=== PATIENT | male | born 2000 | race Caucasian/White ===

== ENCOUNTER 2023-02-10 15:13 | Inpatient (IN) | payer OTHER ==
[~2023-02-10] VITALS: Ht 175.3 cm; Wt 130.0 kg
[2023-02-10 17:34] LABS: BASOPHILS % (AUTO) 0.7 % (0.0-2.0); EOSINOPHILS % (AUTO) 1.9 % (1.0-6.0); HEMATOCRIT 47.6 % (41-53); HEMOGLOBIN 15.7 g/dL (13.5-17.5); LYMPHOCYTES # (AUTO) 2.8 K/uL (1.0-4.8); LYMPHOCYTES % (AUTO) 25.4 % (22.0-44.0); MEAN CORPUSCULAR HEMOGLOBIN 27.5 pg (26.0-34.0); MEAN CORPUSCULAR HGB CONC 32.9 G/dL (31.0-37.0); MEAN CORPUSCULAR VOLUME 83 fL (80-100); MONOCYTES # (AUTO) 0.6 K/uL (0.1-1.0); MONOCYTES % (AUTO) 5.8 % (2.0-9.0); NEUTROPHILS # (AUTO) 7.2 K/uL (1.8-7.7); NEUTROPHILS % (AUTO) 66.2 % (40.0-70.0); PLATELET COUNT (AUTO) 322 K/uL (150-450); RED BLOOD CELL COUNT(AUTO) 5.71 MIL/uL (4.50-5.90); RED CELL DISTRIBUTION WIDTH 14.1 % (11.5-14.5)
[2023-02-10 17:45] LABS: ANION GAP 12 mmol/L (8-16); CALCIUM, TOTAL 9.2 mg/dL (8.8-10.5); CARBON DIOXIDE 25 mmol/L (22-29); CHLORIDE 101 mmol/L (98-107); CREATININE 0.85 mg/dL (0.60-1.30); GLOMERULAR FILTR. RATE CALC > 60 mL/min (>60); GLUCOSE,RANDOM 105 mg/dL (70-110); POTASSIUM 3.8 mmol/L (3.5-5.1); SODIUM SERUM 138 mmol/L (136-145)
[2023-02-10 17:53] LABS: AMPHET/METH SCREEN,URINE NEGATIVE (NEGATIVE); BARBITURATE SCREEN, URINE NEGATIVE (NEGATIVE); BENZODIAZEPINES SCREEN,URINE POSITIVE (NEGATIVE); CANNABINOID SCREEN,URINE POSITIVE (NEGATIVE); COCAINE SCREEN,URINE POSITIVE (NEGATIVE); METHADONE SCREEN, URINE NEGATIVE (NEGATIVE); OPIATE SCREEN,URINE NEGATIVE (NEGATIVE); PHENCYCLIDINE SCREEN,URINE NEGATIVE (NEGATIVE)
[2023-02-10 17:54] LABS: ALANINE AMINOTRANSFERASE 31 U/L (12-78); ALKALINE PHOSPHATASE 87 U/L (46-116); ASPARTATE AMINOTRANSFERASE 20 U/L (15-37); BILIRUBIN,TOTAL 0.5 mg/dL (0.1-1.0); TOTAL PROTEIN, SERUM 8.3 g/dL (6.4-8.2)
[2023-02-10 17:55] LABS: ACETAMINOPHEN < 2 mcg/mL (10-30)
[2023-02-10 18:02] LABS: SALICYLATE 0.5 mg/dL (2.8-20.0)
[2023-02-10] MEDS ORDERED: LORazepam 2 MG/ML VIAL IM ONE (20:00)
[2023-02-10] MEDS ORDERED: BISACODYL 10 MG RECTAL RECTAL SUPPOSITORY PR PRN (20:30)
[2023-02-10] MEDS ORDERED: IPRATROPIUM BROMIDE 0.5 MG/2.5 ML NEB SOLUTION NEB PRN (20:30)
[2023-02-10] MEDS ORDERED: LORazepam 2 MG TABLET PO PRN (20:30)
[2023-02-10] MEDS ORDERED: ALBUTEROL SULFATE 2.5 MG/0.5 ML NEB SOLUTION NEB PRN (20:30)
[2023-02-10] MEDS ORDERED: MAGNESIUM HYDROXIDE SUSPENSION 30 ML UDCUP PO PRN (20:30)
[2023-02-10] MEDS ORDERED: ONDANSETRON HCL 4 MG/2 ML VIAL IVP PRN (20:30)
[2023-02-10 21:21] LABS: COVID AG,FIA SOURCE NASAL SWAB
[2023-02-10] MEDS: ZOLPIDEM TARTRATE 5 MG TABLET PO PRN (22:12)
[2023-02-10] MEDS: HEPARIN SODIUM,PORCINE 5,000 UNITS/ML VIAL SQ SCH (22:12)
[2023-02-10 22:25] VITALS: BP 121/70
[2023-02-11 04:59] VITALS: BP 113/66
[2023-02-11] MEDS ORDERED: LORazepam 2 MG TABLET PO PRN (07:00)
[2023-02-11 07:30] VITALS: BP 97/46
[2023-02-11] MEDS: HEPARIN SODIUM,PORCINE 5,000 UNITS/ML VIAL SQ SCH ×2 (08:53→16:17)
[2023-02-11] MEDS: PANTOPRAZOLE SODIUM 40 MG DR TABLET PO SCH (08:53)
[2023-02-11 09:00] VITALS: BP 116/53
[2023-02-11] MEDS ORDERED: LORazepam 2 MG TABLET PO SCH (09:00)
[2023-02-11] MEDS: ACETAMINOPHEN 325 MG TABLET PO PRN (14:28)
[2023-02-11] MEDS: LORazepam 2 MG/ML VIAL IVP PRN ×2 (15:18→19:43)
[2023-02-11] MEDS: ZOLPIDEM TARTRATE 5 MG TABLET PO PRN (19:43)
[2023-02-11 19:53] VITALS: BP 107/86
[2023-02-12] MEDS: LORazepam 2 MG/ML VIAL IVP PRN ×2 (02:22→08:47)
[2023-02-12] MEDS: ACETAMINOPHEN 325 MG TABLET PO PRN (02:53)
[2023-02-12 02:55] VITALS: BP 133/76
[2023-02-12] MEDS ORDERED: DiphenhydrAMINE HCL 50 MG/ML VIAL IVP ONE (03:30)
[2023-02-12 07:33] VITALS: BP 105/64
[2023-02-12] MEDS: PANTOPRAZOLE SODIUM 40 MG DR TABLET PO SCH (08:48)
[2023-02-12] MEDS: HEPARIN SODIUM,PORCINE 5,000 UNITS/ML VIAL SQ SCH ×3 (08:48→16:00)
[2023-02-12] MEDS ORDERED: LORazepam 1 MG TABLET PO ONE (09:30)
[2023-02-12] MEDS: ChlorproMAZINE HCL 50 MG TABLET PO PRN ×3 (09:47→18:45)
[2023-02-12 14:29] VITALS: BP 148/95
[2023-02-12 20:07] VITALS: BP 145/92
[2023-02-13] MEDS: HEPARIN SODIUM,PORCINE 5,000 UNITS/ML VIAL SQ SCH ×3 (00:14→16:24)
[2023-02-13] MEDS: ZOLPIDEM TARTRATE 10 MG TABLET PO PRN (00:15)
[2023-02-13 05:16] VITALS: BP 119/70
[2023-02-13] MEDS ORDERED: LORazepam 1 MG TABLET PO PRN (07:00)
[2023-02-13 08:18] VITALS: BP 130/72
[2023-02-13] MEDS ORDERED: LORazepam 1 MG TABLET PO SCH (09:00)
[2023-02-13] MEDS: PANTOPRAZOLE SODIUM 40 MG DR TABLET PO SCH (09:13)
[2023-02-13] MEDS: ChlorproMAZINE HCL 50 MG TABLET PO PRN ×2 (12:47→20:00)
[2023-02-13] MEDS: ACETAMINOPHEN 325 MG TABLET PO PRN (12:48)
[2023-02-13 19:25] VITALS: BP 129/74
[2023-02-14] MEDS: ZOLPIDEM TARTRATE 10 MG TABLET PO PRN ×2 (00:16→20:36)
[2023-02-14] MEDS: HEPARIN SODIUM,PORCINE 5,000 UNITS/ML VIAL SQ SCH ×4 (00:16→17:06)
[2023-02-14] MEDS: ACETAMINOPHEN 325 MG TABLET PO PRN ×2 (01:06→17:06)
[2023-02-14 05:03] VITALS: BP 123/94
[2023-02-14] MEDS ORDERED: LORazepam 1 MG TABLET PO PRN (07:00)
[2023-02-14 08:03] VITALS: BP 127/82
[2023-02-14] MEDS: PANTOPRAZOLE SODIUM 40 MG DR TABLET PO SCH (09:16)
[2023-02-14] MEDS: ChlorproMAZINE HCL 50 MG TABLET PO PRN (18:32)
[2023-02-14 20:16] VITALS: BP 135/74
[2023-02-15] MEDS: ACETAMINOPHEN 325 MG TABLET PO PRN ×2 (03:45→13:27)
[2023-02-15] MEDS: ChlorproMAZINE HCL 50 MG TABLET PO PRN (03:45)
[2023-02-15 07:41] VITALS: BP 134/76
[2023-02-15] MEDS: PANTOPRAZOLE SODIUM 40 MG DR TABLET PO SCH (08:27)
[2023-02-15] MEDS: HEPARIN SODIUM,PORCINE 5,000 UNITS/ML VIAL SQ SCH ×2 (08:27)
[2023-02-15] MEDS ORDERED: ACET-2247 PO (11:58)
[2023-02-15] MEDS ORDERED: MAGN-169 PO (11:59)
== END 2023-02-15 14:05 | DRG 897 ==
LOC: EMS 15:18 → 6S 20:30
PROVIDERS: ADMIT Hospitalist; ATTEND Hospitalist
DX: F19.139 Other psychoactive substance abuse with withdrawal, unspecified (principal); R45.851 Suicidal ideations; Z68.41 Body mass index [BMI] 40.0-44.9, adult; E44.0 Moderate protein-calorie malnutrition; F13.139 Sedative, hypnotic or anxiolytic abuse with withdrawal, unspecified; F10.139 Alcohol abuse with withdrawal, unspecified; F17.210 Nicotine dependence, cigarettes, uncomplicated; E66.01 Morbid (severe) obesity due to excess calories; F32.A Depression, unspecified; F29 Unspecified psychosis not due to a substance or known physiological condition; Z20.822 Contact with and (suspected) exposure to COVID-19
CPT/HCPCS: 71045; 80053; 80307; 84484; 85025; 93005; 99285; G0480; G0481; J1200; J1644; J2060; 36415-L1; 36415-TC